=== PATIENT | female | born 1980 | race Caucasian/White ===

== ENCOUNTER 2017-02-08 09:34 | Inpatient (IN) | payer OTHER ==
[~2017-02-08] VITALS: Ht 175.3 cm; Wt 109.0 kg
[2017-02-08] VITALS (7 sets, daily range): BP systolic 133–165; BP diastolic 86–99
[2017-02-08] MEDS: PRENATAL VITAMINS CHEWABLE TABLET PO SCH (09:00)
[2017-02-08] MEDS: DOCUSATE SODIUM 100 MG CAP PO SCH ×2 (09:00→21:00)
[2017-02-08] MEDS ORDERED: OXYTOCIN 30 UNITS IN 0.9% NaCl 500ML IV BAG (J2590) As Ordered ONE (09:56)
[2017-02-08] MEDS ORDERED: TUMS500C PO (10:01)
[2017-02-08] MEDS ORDERED: OXYTOCIN DRIP 30 UNITS in APPROPRIATE DILUENT 1 EA IV SCH (10:32)
[2017-02-08] MEDS ORDERED: DIBUCAINE 1% OINTMENT 30GM TOP PRN (10:45)
[2017-02-08] MEDS ORDERED: RHOGAM 300 MCG (1500 IU) INJ (J2790) IM SCH (10:45)
[2017-02-08] MEDS ORDERED: PROMETHAZINE 25 MG TAB PO PRN (10:45)
[2017-02-08] MEDS ORDERED: METHYLERGONOVINE MALEATE 0.2 MG/ML VIAL (J2210) IM PRN (10:45)
[2017-02-08] MEDS ORDERED: MEASLES,MUMPS,RUBELLA VACCINE INJ (MMR-II) (90707) SC SCH (10:45)
[2017-02-08] MEDS ORDERED: ONDANSETRON 4MG/2ML VIAL (J2405) IV PRN (10:45)
[2017-02-08 11:10] LABS: MEAN CORPUSCULAR HEMOGLOBIN 29.3 pg (27.0-33.0); MEAN CORPUSCULAR HGB CONC 33.2 g/dl (32.0-36.5); MEAN CORPUSCULAR VOLUME 88.2 fl (80.0-96.0); WHITE BLOOD COUNT 15.9 10^3/uL (4.0-10.0)
[2017-02-08] MEDS: IBUPROFEN 800 MG TAB PO PRN ×2 (11:53→19:30)
[2017-02-08 13:36] LABS: ALBUMIN 2.5 GM/DL (3.2-5.2); ALBUMIN/GLOBULIN RATIO 0.66 (1.00-1.93); ALKALINE PHOSPHATASE 220 U/L (45-117); ALT/SGPT 16 U/L (12-78); ANION GAP 16 MEQ/L (8-16); AST/SGOT 18 U/L (15-37); BILIRUBIN,TOTAL 0.2 MG/DL (0.2-1.0); BLOOD UREA NITROGEN 11 MG/DL (7-18); CALCIUM LEVEL 8.6 MG/DL (8.5-10.1); CARBON DIOXIDE LEVEL 18 MEQ/L (21-32); CHLORIDE LEVEL 105 MEQ/L (98-107); CREATININE FOR GFR 0.65 MG/DL (0.55-1.02); GLOMERULAR FILTRATION RATE > 60.0 (>60); GLUCOSE, FASTING 114 MG/DL (70-105); SODIUM LEVEL 139 MEQ/L (136-145); TOTAL PROTEIN 6.3 GM/DL (6.4-8.2); URIC ACID 5.9 MG/DL (2.6-6.0)
[2017-02-08 13:53] LABS: MEAN CORPUSCULAR HEMOGLOBIN 29.8 pg (27.0-33.0); MEAN CORPUSCULAR HGB CONC 33.9 g/dl (32.0-36.5); MEAN CORPUSCULAR VOLUME 87.8 fl (80.0-96.0); RED CELL DISTRIBUTION WIDTH 12.9 % (11.5-14.5); WHITE BLOOD COUNT 21.3 10^3/uL (4.0-10.0)
[2017-02-08] MEDS: ACETAMINOPHEN 500 MG TAB PO PRN (22:35)
[2017-02-09 02:02] VITALS: BP 142/89
[2017-02-09 05:58] VITALS: BP 131/83
[2017-02-09] MEDS: DOCUSATE SODIUM 100 MG CAP PO SCH ×2 (09:32→21:10)
[2017-02-09] MEDS: PRENATAL VITAMINS CHEWABLE TABLET PO SCH (09:32)
[2017-02-09 10:14] VITALS: BP 147/76
[2017-02-09] MEDS: FAMOTIDINE 20 MG TAB PO SCH ×2 (12:19→21:10)
[2017-02-09 14:13] VITALS: BP 153/91
[2017-02-09 18:00] VITALS: BP 135/81
[2017-02-09 21:30] VITALS: BP 142/81
[2017-02-09] MEDS: ACETAMINOPHEN 500 MG TAB PO PRN (21:54)
[2017-02-10 02:00] VITALS: BP 133/80
[2017-02-10 06:00] VITALS: BP 138/86
--- NOTE | 2017-02-10 07:52 | IPNPDOC ---
Progress Note Date of Service The patient was seen on 02/10/17 at 07:45. Progress Note PPD#2 s/p S: Suze is a 36yo [id number] s/p uncomplicated at term after presenting in active labor. Her hospital course has only been complicated by diagnosis of pre- eclampsia (by labs and bp's) withOUT severe features. She is doing well today. Pain well controlled, lochia minimal, voiding spontaneously, tolerating a regular diet, ambulating without difficulty. No f/c/n/v/SOB/CP. She had a headache last night that went away with rest, hydration and tylenol. She is breast feeding without issue. O: BP's mild range to recently normotensive (no severe range), nml HR, afebrile H: RRR, no murmurs L: CTAB, no wheezing/crackles/rhales Abd: soft, appropriately tender, and FF at U-2/fundus nontender Ext: no c/c/e A/P: S/p , PPD#2, course only complicated by pre-eclampsia withOUT severe features. Mild range bp's yesterday now normotensive, hemodynamically stable, afebrile, good pain control. NO evidence of severe pre-eclampsia. -Routine care -will continue to monitor today -if baby is able to go home today, consider discharge later this afternoon for patient -I gave her all of her home meds: colace, lanolin, motrin, tylenol -We discussed return precautions at length for increasing vaginal bleeding, foul smelling discharge, abdominal pain, breast pain/redness, fevers/chills, headache resistant to rest/hydration/tylenol, changes in vision, shortness of breath/chest pain -I instructed her to come to clinic in 1 week for a bp check -After that, will have routine 6wk pp visit Dr. Joseph Easley ([facility])MD VS, I&O, 24H, Fishbone Vital Signs/I&O Vital Signs Date Time Temp Pulse Resp B/P (MAP) Pulse Ox O2 Delivery O2 Flow Rate FiO2 02/10/17 06:00 99.0 85 18 138/86 (103) 99 Room Air JOSEPH EASLEY MD Feb 10, 2017 07:52
[2017-02-10] MEDS: PRENATAL VITAMINS CHEWABLE TABLET PO SCH (08:35)
[2017-02-10] MEDS: FAMOTIDINE 20 MG TAB PO SCH (08:35)
[2017-02-10] MEDS: DOCUSATE SODIUM 100 MG CAP PO SCH (08:35)
[2017-02-10] MEDS ORDERED: INFLUENZA QUADRIVALENT PF VACCINE 0.5ML SYRINGE (90686) IM ONE (09:00)
[2017-02-10 10:00] VITALS: BP 127/73
[2017-02-10] MEDS ORDERED: MOTR200T44 PO (13:03)
[2017-02-10] MEDS ORDERED: PEPC1TAB4 PO (13:03)
[2017-02-10] MEDS ORDERED: TYLE325T5 PO (13:03)
[2017-02-10] MEDS ORDERED: COLA100C5 PO (13:03)
[2017-02-10] MEDS ORDERED: PRENTAB55 PO (13:03)
[2017-02-10] MEDS ORDERED: DIBU10OI TOP (13:03)
[2017-02-11] MEDS ORDERED: MUCI600T37 PO (19:06)
[2017-02-11] MEDS ORDERED: COLA100C5 PO (19:06)
[2017-02-11] MEDS ORDERED: LABE10TAB PO (23:00)
[2017-02-11] MEDS ORDERED: MACR100C43 PO (23:01)
== END 2017-02-10 13:40 | disposition home or self-care (01) | DRG 774 ==
LOC: M LDO 09:34 → M LDI 09:37 → M OBS 12:51
PROVIDERS: ADMIT Obstetrics & Gynecology; ATTEND Obstetrics & Gynecology
PROC: 10E0XZZ Delivery of Products of Conception, External Approach (ICD-10-PCS; principal; 2017-02-08)
DX: O48.0 Post-term pregnancy (principal); O14.95 Unspecified pre-eclampsia, complicating the puerperium; Z3A.40 40 weeks gestation of pregnancy; Z37.0 Single live birth

== ENCOUNTER 2017-02-11 18:56 | Emergency (ER) | payer OTHER ==
[~2017-02-11] VITALS: Ht 175.3 cm; Wt 108.2 kg
[~2017-02-11 18:56] MED LIST: COLA100C5 PO; DIBU10OI TOP; MOTR200T44 PO; PEPC1TAB4 PO; PRENTAB55 PO; TUMS500C PO; TYLE325T5 PO
[2017-02-11] MEDS ORDERED: COLA100C5 PO (19:06)
[2017-02-11] MEDS ORDERED: MUCI600T37 PO (19:06)
[2017-02-11 20:41] LABS: BASO # 0.1 10^3/uL (0.0-0.2); BASO % 0.5 % (0.0-1.0); EOS # 0.4 10^3/uL (0.0-0.50); EOS % 2.8 % (0.0-3.0); IMMATURE GRANULOCYTE % 2.1 % (0-0); LYMPH # 3.1 10^3/uL (1.5-4.5); MEAN CORPUSCULAR HEMOGLOBIN 29.6 pg (27.0-33.0); MEAN CORPUSCULAR HGB CONC 33.2 g/dl (32.0-36.5); MEAN CORPUSCULAR VOLUME 89.2 fl (80.0-96.0); MONO # 0.8 10^3/uL (0.0-0.8); MONO % 6.8 % (0.0-5.0); NEUTROPHILS # 7.8 10^3/uL (1.8-7.7); NEUTROPHILS % 62.8 % (36.0-66.0); PLATELET COUNT, AUTOMATED 290 10^3/uL (150-450); WHITE BLOOD COUNT 12.4 10^3/uL (4.0-10.0)
[2017-02-11 21:04] LABS: ALBUMIN 2.5 GM/DL (3.2-5.2); ALBUMIN/GLOBULIN RATIO 0.58 (1.00-1.93); ALKALINE PHOSPHATASE 171 U/L (45-117); ALT/SGPT 94 U/L (12-78); ANION GAP 7 MEQ/L (8-16); AST/SGOT 88 U/L (15-37); BILIRUBIN,DIRECT < 0.1 MG/DL (0.0-0.2); BILIRUBIN,TOTAL 0.2 MG/DL (0.2-1.0); BLOOD UREA NITROGEN 14 MG/DL (7-18); CALCIUM LEVEL 9.2 MG/DL (8.5-10.1); CARBON DIOXIDE LEVEL 27 MEQ/L (21-32); CHLORIDE LEVEL 104 MEQ/L (98-107); CREATININE FOR GFR 0.58 MG/DL (0.55-1.02); GLOMERULAR FILTRATION RATE > 60.0 (>60); GLUCOSE, FASTING 79 MG/DL (70-105); POTASSIUM SERUM 3.7 MEQ/L (3.5-5.1); SODIUM LEVEL 138 MEQ/L (136-145); TOTAL PROTEIN 6.8 GM/DL (6.4-8.2)
[2017-02-11 22:49] VITALS: BP 153/90
[2017-02-11] MEDS ORDERED: LABE10TAB PO (23:00)
[2017-02-11] MEDS ORDERED: LABETALOL 100 MG TAB PO ONE (23:00)
[2017-02-11] MEDS ORDERED: MACR100C43 PO (23:01)
[2017-02-11] MEDS ORDERED: NITROFURANTOIN (MACROBID) 100 MG CAP PO ONE (23:15)
[2017-02-11 23:25] VITALS: BP 150/95
== END 2017-02-12 00:27 | disposition home or self-care (01) ==
LOC: M ED 18:56
DX: O16.5 Unspecified maternal hypertension, complicating the puerperium (principal); O90.6 Postpartum mood disturbance; Z79.899 Other long term (current) drug therapy

== ENCOUNTER → 2018-08-12 | Outpatient (CLI) | payer OTHER ==
[~2018-08-12] MED LIST changes: +LABE10TAB PO; +MACR100C43 PO; +MUCI600T37 PO; -PEPC1TAB4 PO; +PEPC1TAB5 PO
--- NOTE | 2018-08-12 14:27 | REP ---
DIGITAL DIAGNOSTIC BILATERAL MAMMOGRAPHY WITH CAD, IF AND A FOCUS LEFT BREAST SONOGRAPHY: HISTORY: Two palpable lumps in the left breast superiorly, one medial and the other laterally. No comparison breast imaging. MAMMOGRAPHIC FINDINGS: Skin markers are affixed to the skin at the site of the palpable lumps. Routine views of the left breast are augmented by magnified focal spot compression CC and MLO views. These demonstrate a predominately fat replaced breast parenchyma scattered fibroglandular elements mild in degree. No mass is seen at the site of the palpable lump or elsewhere on either side mammographically. No worrisome skin change is seen. No architectural distortion or microcalcification is seen. SONOGRAPHIC FINDINGS: The left breast is examined from 8-o'clock position to 10-o'clock position and from 12-o'clock position to 2-o'clock position in the area of the palpable lumps. Heterogeneous fibroglandular background echotexture is seen. No cyst is seen. No mass is observed in either side. No architectural distortion is seen. IMPRESSION: BIRADS 1: BI-RADS/ACR category 1 mammogram. Negative Mammogram. BIRADS category one negative findings. Clinical follow-up is advised. This mammogram was interpreted with the aid of an FDA-approved computer-aided detection system. The patient states she had a clinical breast exam in June 2018. The patient letter being requested is M#2. Electronically Signed by Lee Machuca MD 08/12/2018 03:20 P
== END ==
LOC: M RAD 12:50
PROVIDERS: ATTEND Family Medicine
DX: R92.8 Other abnormal and inconclusive findings on diagnostic imaging of breast (principal)

== ENCOUNTER → 2019-01-29 | Outpatient (REF) | payer OTHER ==
[2019-01-29 21:35] LABS: CHLAMYDIA DNA AMPLIFICATION NEGATIVE (NEGATIVE); GC DNA AMPLIFICATION NEGATIVE (NEGATIVE)
== END ==
LOC: M SFHCLERA 16:59
PROVIDERS: ATTEND Physician Assistant
DX: B37.9 Candidiasis, unspecified (principal)

== ENCOUNTER 2020-02-25 11:48 | Emergency (ER) | payer OTHER ==
[~2020-02-25] VITALS: Ht 175.3 cm; Wt 82.7 kg
[2020-02-25 13:24] LABS: BASO % 0.3 % (0.0-1.0); EOS % 0.4 % (0.0-3.0); HEMATOCRIT 38.7 % (36.0-47.0); HEMOGLOBIN 12.2 g/dl (12.0-15.5); LYMPH # 2.1 10^3/uL (1.5-5.0); LYMPH % 18.7 % (24.0-44.0); MEAN CORPUSCULAR HGB CONC 31.5 g/dl (32.0-36.5); MEAN CORPUSCULAR VOLUME 92.1 fl (80.0-96.0); MONO # 0.6 10^3/uL (0.0-0.8); MONO % 5.5 % (0.0-5.0); NEUTROPHILS # 8.4 10^3/uL (1.5-8.5); NEUTROPHILS % 74.7 % (36.0-66.0); PLATELET COUNT, AUTOMATED 264 10^3/uL (150-450); WHITE BLOOD COUNT 11.2 10^3/uL (4.0-10.0)
--- NOTE | 2020-02-25 13:43 | REP ---
INDICATION: hematuria/flank pain/dysuria COMPARISON: None. TECHNIQUE: Helical scanning is acquired in 4 mm axial images were reformatted. Coronal and sagittal MPR images were generated and reviewed. FINDINGS: Digital preliminary contracts advisor radiograph demonstrates an unremarkable bowel gas pattern and an IUD projecting in the central pelvis. The lung bases are clear on axial CT images. The liver is normal in size. There is a focal low-density lesion in the liver centrally in the right lobe measuring 2.9 by 1.8 by 2.3 cm in diameter. No other focal liver lesion is seen. No abnormality is noted the gallbladder or the pancreas. The spleen is normal in size homogeneous in texture. No adrenal lesion is seen on either side. Kidneys are morphologically intact. No hydronephrosis or intrarenal calculus is observed. No retroperitoneal mass or adenopathy is seen. Small and large bowel loops are normal in the upper abdomen. A normal appendix is seen on pelvic images in the right lower quadrant. IUD appears to be centrally located in good position in the uterus. No ovarian mass or cyst is seen. No free fluid is noted. No pelvic adenopathy is seen. Bone window settings show no significant bony abnormality. Urinary bladder is unremarkable. IMPRESSION: No urinary tract calculus or hydronephrosis seen. IUD in good position in the uterus. Normal appendix. There is a 2.9 by 2.3 x 1.8 cm low-density lesion in the liver this is most likely a benign hemangioma. MRI study of the liver without and with intravenous gadolinium suggested for further characterization. <Electronically signed by Jatinder Machuca > 02/25/20 [id number]
[2020-02-25] MEDS ORDERED: cefTRIAXone SOD 1 GM in D5W MINI-BAG PLUS 50 ML IV ONE (13:45)
[2020-02-25] MEDS ORDERED: CIPR-249 PO (14:31)
[2020-02-25 14:49] VITALS: BP 152/87
--- NOTE | 2020-02-26 08:58 | ED PDOC ---
Post-Departure Follow-Up ft bart morales and dr abel faxed formal report of ct abd/p for fu Jasmeet Cruz MD Feb 26, 2020 08:58
== END 2020-02-25 14:56 | disposition home or self-care (01) ==
LOC: M ED 11:48
DX: N30.91 Cystitis, unspecified with hematuria (principal); R93.2 Abnormal findings on diagnostic imaging of liver and biliary tract; F32.9 Major depressive disorder, single episode, unspecified; Z97.5 Presence of (intrauterine) contraceptive device
CPT/HCPCS: 74176; 80047; 81001; 84702; 85025; 87088; 87186; 96365; 99283; J0696

== ENCOUNTER 2020-03-01 21:28 | Emergency (ER) | payer OTHER ==
[~2020-03-01] VITALS: Ht 175.3 cm; Wt 80.1 kg
[~2020-03-01 21:28] MED LIST changes: +CIPR-249 PO
[2020-03-01 21:29] VITALS: BP 132/75
[2020-03-01 23:20] LABS: BASO # 0.1 10^3/uL (0.0-0.2); BASO % 0.5 % (0.0-1.0); EOS # 0.2 10^3/uL (0.0-0.5); EOS % 1.2 % (0.0-3.0); HEMATOCRIT 41.9 % (36.0-47.0); HEMOGLOBIN 13.2 g/dl (12.0-15.5); LYMPH # 3.5 10^3/uL (1.5-5.0); LYMPH % 28.5 % (24.0-44.0); MEAN CORPUSCULAR HEMOGLOBIN 29.2 pg (27.0-33.0); MEAN CORPUSCULAR HGB CONC 31.5 g/dl (32.0-36.5); MEAN CORPUSCULAR VOLUME 92.7 fl (80.0-96.0); MONO # 0.9 10^3/uL (0.0-0.8); MONO % 7.8 % (0.0-5.0); NEUTROPHILS # 7.5 10^3/uL (1.5-8.5); NEUTROPHILS % 61.4 % (36.0-66.0); PLATELET COUNT, AUTOMATED 298 10^3/uL (150-450); RED BLOOD COUNT 4.52 10^6/uL (4.00-5.40); WHITE BLOOD COUNT 12.1 10^3/uL (4.0-10.0)
[2020-03-01 23:44] LABS: ALBUMIN 3.9 GM/DL (3.2-5.2); ALT/SGPT 20 U/L (12-78); BILIRUBIN,DIRECT < 0.1 MG/DL (0.0-0.2); BILIRUBIN,TOTAL 0.2 MG/DL (0.2-1.0); BLOOD UREA NITROGEN 13 MG/DL (7-18); CARBON DIOXIDE LEVEL 29 MEQ/L (21-32); CHLORIDE LEVEL 105 MEQ/L (98-107); CREATININE FOR GFR 0.84 MG/DL (0.55-1.30); GLOMERULAR FILTRATION RATE > 60.0 (>60); GLUCOSE, FASTING 85 MG/DL (70-100); LIPASE 218 U/L (73-393); POTASSIUM SERUM 3.6 MEQ/L (3.5-5.1); SODIUM LEVEL 140 MEQ/L (136-145)
[2020-03-02 00:21] LABS: HCG, SERUM QUALITATIVE NEGATIVE (NEGATIVE)
[2020-03-02] MEDS ORDERED: PYRI1TAB5 PO (02:37)
[2020-03-02] MEDS ORDERED: PHENAZOPYRIDINE 100 MG TAB PO ONE (02:45)
== END 2020-03-02 02:52 | disposition home or self-care (01) ==
LOC: M ED 21:28
DX: R35.8 Other polyuria (principal); R53.83 Other fatigue

== ENCOUNTER → 2021-05-03 | Outpatient (REF) | payer OTHER ==
[~2021-05-03] MED LIST changes: -DIBU10OI TOP; +DIBU28OI2 TOP; +LABE100T4 PO; -LABE10TAB PO; +PYRI1TAB5 PO
[2021-05-03 17:08] LABS: APPEARANCE, URINE CLOUDY (CLEAR); BACTERIA, URINE AUTO 1+ (NEGATIVE); BILIRUBIN, URINE AUTO NEGATIVE (NEGATIVE); BLOOD, URINE BLOOD 3+ (NEGATIVE); COLOR, URINE AMBER (YELLOW); GLUCOSE, URINE (UA) AUTO NEGATIVE (NEGATIVE); KETONE, URINE AUTO NEGATIVE (NEGATIVE); LEUKOCYTE ESTERASE, URINE AUTO 2+ (NEGATIVE); NITRITE, URINE AUTO NEGATIVE (NEGATIVE); PROTEIN, URINE AUTO 2+ mg/dL (NEGATIVE); RBC, URINE AUTO TNTC /HPF (0-3); SPECIFIC GRAVITY URINE AUTO 1.023 (1.002-1.035); SQUAMOUS EPITHELIAL CELL UR AU 16 /HPF (0-6); UROBILINOGEN, URINE AUTO 0.2 mg/dL (0.0-2.0); WBC, URINE AUTO TNTC /HPF (0-3)
== END ==
LOC: M LAB REF 15:52
PROVIDERS: ATTEND Physician Assistant Medical
DX: R30.0 Dysuria (principal)

== ENCOUNTER 2021-08-19 06:14 | Day surgery (SDC) | payer OTHER ==
[~2021-08-19] VITALS: Ht 175.3 cm; Wt 85.6 kg
[~2021-08-19 06:14] MED LIST changes: +ACETAMINOPHEN 650 MG SUPP PR ONE; +LIDOCAINE 1% MDV 20ML VIAL SQ PRN; +LORY1TAB2 PO; +LR 1,000 ML IV ONE
[2021-08-19 06:44] LABS: HEMATOCRIT 37.5 % (36.0-47.0); HEMOGLOBIN 12.7 g/dl (12.0-15.5); MEAN CORPUSCULAR HGB CONC 33.9 g/dl (32.0-36.5); MEAN CORPUSCULAR VOLUME 88.4 fl (80.0-96.0); PLATELET COUNT, AUTOMATED 285 10^3/uL (150-450); RED BLOOD COUNT 4.24 10^6/uL (4.00-5.40); WHITE BLOOD COUNT 5.2 10^3/uL (4.0-10.0)
[2021-08-19] MEDS ORDERED: fentaNYL 100 MCG/2 ML INJECTION As Ordered ONE (07:04)
[2021-08-19] MEDS ORDERED: MIDAZOLAM INJ 2MG/2ML VIAL (J2250 PER 1MG) As Ordered ONE (07:04)
[2021-08-19 07:05] LABS: BLOOD UREA NITROGEN 8 MG/DL (7-18); CALCIUM LEVEL 9.2 MG/DL (8.5-10.1); CARBON DIOXIDE LEVEL 30 MEQ/L (21-32); CHLORIDE LEVEL 109 MEQ/L (98-107); CREATININE FOR GFR 0.85 MG/DL (0.55-1.30); GLOMERULAR FILTRATION RATE > 60.0 (>60); GLUCOSE, FASTING 94 MG/DL (70-100); HCG, SERUM QUANTITATIVE < 1.0 MIU/ML; POTASSIUM SERUM 4.3 MEQ/L (3.5-5.1); SODIUM LEVEL 142 MEQ/L (136-145)
[2021-08-19] MEDS ORDERED: LIDOCAINE 2% 100MG/5ML SDV (FOR ANES.) As Ordered ONE (07:08)
[2021-08-19] MEDS ORDERED: ONDANSETRON 4MG/2ML VIAL As Ordered ONE (07:08)
[2021-08-19] MEDS ORDERED: dexameTHASONE 4 MG/ML 1ML VIAL (J1100 PER 1MG) As Ordered ONE (07:08)
[2021-08-19] MEDS ORDERED: propofoL 200 MG/20 ML VIAL As Ordered ONE (07:08)
[2021-08-19] MEDS ORDERED: ROCURONIUM BROMIDE 50 MG/5 ML VIAL As Ordered ONE (07:08)
[2021-08-19] MEDS ORDERED: BUPIVACAINE HCL 0.5% 10ML VIAL As Ordered ONE (07:15)
[2021-08-19] MEDS ORDERED: ACETAMINOPHEN 650 MG SUPP As Ordered ONE (07:19)
[2021-08-19] MEDS ORDERED: MEPERIDINE INJ 25 MG/ML VIAL (J2175) As Ordered ONE (08:48)
[2021-08-19] MEDS ORDERED: oxyCODONE 5MG TAB PO PRN (09:10)
[2021-08-19] MEDS ORDERED: LR 1,000 ML IV SCH (09:10)
[2021-08-19] MEDS ORDERED: fentaNYL 100 MCG/2 ML INJECTION IV PRN (09:10)
[2021-08-19] MEDS ORDERED: ONDANSETRON 4MG/2ML VIAL IV PRN (09:10)
[2021-08-19 11:03] VITALS: BP 107/63
== END 2021-08-19 11:10 | disposition home or self-care (01) ==
LOC: M SDC 06:14
PROVIDERS: ATTEND Obstetrics & Gynecology
DX: Z30.2 Encounter for sterilization (principal); Z79.899 Other long term (current) drug therapy
CPT/HCPCS: 36415; 58661; 80048; 84702; 85027; 88302; J1100; J2250; J2405; J3010

== ENCOUNTER → 2022-03-16 | Outpatient (REF) | payer OTHER ==
[~2022-03-16] MED LIST changes: -ACETAMINOPHEN 650 MG SUPP PR ONE; -LABE100T4 PO; +LABE100T6 PO; -LIDOCAINE 1% MDV 20ML VIAL SQ PRN; -LR 1,000 ML IV ONE
[2022-03-16 23:31] LABS: GC DNA AMPLIFICATION NEGATIVE (NEGATIVE)
== END ==
LOC: M LAB REF 21:21
PROVIDERS: ATTEND Physician Assistant Medical
DX: Z11.3 Encounter for screening for infections with a predominantly sexual mode of transmission (principal)